=== PATIENT | male | born 1965 | race African-American/Black ===

== ENCOUNTER 2020-08-23 22:33 | Emergency (ER) | payer MEDICAID ==
[~2020-08-23] VITALS: Ht 170.2 cm; Wt 72.6 kg
[2020-08-23 22:34] VITALS: BP 144/66
--- NOTE | 2020-08-23 22:37 | NUR ---
TO LOBBY A/W BED AMBULATORY
--- NOTE | 2020-08-23 23:03 | NUR ---
SEEN AND EXAMINED BY PABLO WITH ORDERS AND CARRIED OUT.
--- NOTE | 2020-08-23 23:03 | NUR ---
Dr. Catherine examining patient.
[2020-08-23] MEDS: HYDROcodone/APAP 5/325 MG 1 TAB TAB PO ONE (23:08)
--- NOTE | 2020-08-23 23:10 | NUR ---
PABLO PULLED THE THORN ON HIS RT 3RD TOE ASEPTICALLY , PATIENT TOLERATED WELL
[2020-08-23] MEDS ORDERED: BACITRACIN OINT 500 UNITS/GM PKT TP ONE (23:20)
[2020-08-23] MEDS: BACITRACIN ZINC/POLYMYXIN B OINT 30 GM TUBE TP STA (23:23)
[2020-08-23 23:30] VITALS: BP 144/66
== END 2020-08-23 23:30 | disposition home or self-care (01) ==
LOC: MED 22:33
DX: S99.822A Other specified injuries of left foot, initial encounter (principal); X58.XXXA Exposure to other specified factors, initial encounter; Y93.89 Activity, other specified; Y92.89 Other specified places as the place of occurrence of the external cause; Y99.8 Other external cause status
CPT/HCPCS: 99283